=== PATIENT | female | born 1930 | race Caucasian/White ===

== ENCOUNTER → 2018-04-22 | Outpatient (CLI) | payer MEDICARE, OTHER ==
[~2018-04-22] MED LIST: AMLO-150 PO; ASPI-515 PO; ATOR10TA9 PO; CETI10TA24 PO; REGADENOSON 0.4 MG/5 ML SYRINGE ONE; TRAM50TA2 PO
== END | disposition home or self-care (01) ==
LOC: CFH 08:15
PROVIDERS: ATTEND Physician Assistant Medical
DX: I42.9 Cardiomyopathy, unspecified (principal); I10 Essential (primary) hypertension; I25.2 Old myocardial infarction
CPT/HCPCS: 78452; 93017; A9502; J2785